=== PATIENT | female | born 1985 | race African-American/Black ===

== ENCOUNTER 2020-06-18 15:11 | Emergency (ER) | payer OTHER ==
[~2020-06-18] VITALS: Ht 180.3 cm; Wt 99.8 kg
[~2020-06-18 15:11] MED LIST: BACITRACIN3.5 GM TOP; FLAGYL500 MG PO; NAPROSYN500 MG PO
[2020-06-18 15:24] VITALS: BP 116/65
[2020-06-18] MEDS ORDERED: LAMOTRIGINE150 MG PO (16:10)
[2020-06-18] MEDS ORDERED: SERTRALINE HCL50 MG PO (16:10)
== END 2020-06-18 17:02 | disposition home or self-care (01) ==
LOC: ER 15:11
DX: R05 Cough (principal); Z79.899 Other long term (current) drug therapy; Z88.0 Allergy status to penicillin; Z91.040 Latex allergy status; Z88.8 Allergy status to other drugs, medicaments and biological substances; Z20.828 Contact with and (suspected) exposure to other viral communicable diseases

== ENCOUNTER 2020-07-18 13:42 | Emergency (ER) | payer OTHER ==
[~2020-07-18] VITALS: Ht 180.3 cm; Wt 90.7 kg
[~2020-07-18 13:42] MED LIST changes: +LAMOTRIGINE150 MG PO; +SERTRALINE HCL50 MG PO
[2020-07-18 18:07] LABS: ABSOLUTE NEUTROPHILS 2.3 thou/uL (1.4-8.2); BASOPHILS 0.5 % (0.0-2.0); EOSINOPHILS 1.3 % (0.0-3.0); HEMATOCRIT 38.8 % (37.0-47.0); HEMOGLOBIN 12.5 gm/dL (12.0-15.0); LYMPHOCYTES 47.6 % (24.0-44.0); MCH 29.2 pg (26.0-34.0); MCHC 32.2 g/dL (28.0-37.0); MCV 90.7 fL (80.0-100.0); MONOCYTES 10.6 % (1.0-8.0); PLATELET COUNT 226 thou/uL (150-400); RBC 4.27 mil/uL (4.20-5.00); RDW 16.6 % (10.5-14.5); WBC 5.6 thou/uL (4.0-11.0)
[2020-07-18 18:13] LABS: CREATININE 0.9 mg/dL (0.6-1.0); POTASSIUM 3.7 mmol/L (3.5-5.1)
[2020-07-18 19:00] LABS: URINE BILIRUBIN NEGATIVE (Negative); URINE BLOOD NEGATIVE (Negative); URINE CLARITY CLEAR; URINE GLUCOSE-RANDOM* NEGATIVE (Negative); URINE KETONES TRACE (Negative); URINE LEUKOCYTES-REFLEX NEGATIVE (Negative); URINE NITRITE-REFLEX NEGATIVE (Negative); URINE PROTEIN (DIPSTICK) NEGATIVE (Negative); URINE SPECIFIC GRAVITY >= 1.030 (1.005-1.035); URINE UROBILINOGEN 0.2 E.U./dl (0.2-1.0)
[2020-07-18 19:02] LABS: URINE COLOR YELLOW
[2020-07-18 19:10] VITALS: BP 122/74
== END 2020-07-18 19:10 | disposition home or self-care (01) ==
LOC: ER 13:42
PROVIDERS: Nurse Practitioner
DX: R56.9 Unspecified convulsions (principal); Z79.899 Other long term (current) drug therapy; Z88.0 Allergy status to penicillin; Z88.8 Allergy status to other drugs, medicaments and biological substances; Z91.040 Latex allergy status